=== PATIENT | female | born 1955 | race Caucasian/White ===

== ENCOUNTER 2019-01-14 14:56 | Emergency (ER) | payer MEDICARE, BC ==
[2019-01-14] MEDS ORDERED: Lidocaine 1%* 5 ML VIAL INJ ONE ×2 (15:42→17:57)
[2019-01-14] MEDS ORDERED: Tetan/Diph/Pertus SYR(Tdap)* 0.5 ML SYR(BOOSTRIX) use SYR IM ONE (15:42)
--- NOTE | 2019-01-14 15:43 | ED ---
Lower Extremity - HPI Summary HPI Summary: Patient is a 63-year-old female who presents emergency department for right knee pain and bilateral foot pain after mechanical fall that occurred just prior to arrival. Patient states she was walking off of a sidewalk into a parking lot when she did not realize that there was a step down causing her to fall landing onto her right knee. Patient denies head injury or loss of consciousness. Patient is unsure of her last tetanus immunization. Patient otherwise denies headache, chest pain, shortness of breath, syncope, lightheadedness, dizziness. Symptoms are mild in severity. Touching affected areas makes symptoms worse. Rest makes symptoms better. Patient notes she took Tylenol prior to arrival. - History of Current Complaint Chief Complaint: EDExtremityLower Stated Complaint: GASH IN KNEE PER PT Time Seen by Provider: 01/14/19 15:34 Hx Obtained From: Patient Pain Intensity: 8 - Allergies/Home Medications Allergies/Adverse Reactions: Allergies Allergy/AdvReac Type Severity Reaction Status Date / Time sulfamethoxazole Allergy Rash Verified 01/14/19 15:03 [From Bactrim] trimethoprim [From Bactrim] Allergy Rash Verified 01/14/19 15:03 PMH/Surg Hx/FS Hx/Imm Hx Previously Healthy: Yes Infectious Disease History: No Infectious Disease History: Denies: Traveled Outside the [place] in Last 30 Days - Family History Known Family History: Positive: Non-Contributory - Social History Occupation: Retired Lives: With Family Alcohol Use: Occasionally Substance Use Type: Reports: None Smoking Status (MU): Never Smoked Tobacco Review of Systems Cardiovascular: Negative Respiratory: Negative Positive: Other - Right knee pain and bilateral foot pain Positive: Other - laceration to right knee Negative: Weakness, Paresthesia, Numbness All Other Systems Reviewed And Are Negative: Yes Physical Exam Triage Information Reviewed: Yes Vital Signs On Initial Exam: Initial Vitals Temp Pulse Resp BP Pulse Ox 97.8 F 67 16 159/93 98 01/14/19 14:59 01/14/19 14:59 01/14/19 14:59 01/14/19 14:59 01/14/19 14:59 Vital Signs Reviewed: Yes Appearance: Positive: Well-Appearing - Pt. sitting in wheelchair in hallway in [facility]. present. Right leg of suleiman is cut with blood on jaqui. Skin: Positive: Warm, Dry Head/Face: Positive: Normal Head/Face Inspection Eyes: Positive: Normal, EOMI, YOSEF Neck: Positive: Supple Musculoskeletal: Positive: Other - Diffuse right anterior knee pain with overlying 4 cm horizontal laceration. Pain to bilateral feet on palpation. Good pulses bilaterally. Neurological: Positive: Normal, Alert, Oriented to Person Place, Time, CN Intact II-III Psychiatric: Positive: Affect/Mood Appropriate Procedures - Splinting Right Lower Extremity Pre-Made Type: post op shoe Pre-Proc Neuro Vasc Exam: normal Post-Proc Neuro Vasc Exam: normal Left Lower Extremity Hand-Made Type: orthoglass Splint: posterior walking Pre-Proc Neuro Vasc Exam: normal Post-Proc Neuro Vasc Exam: normal - Laceration/Wound Repair 1 Location: lower extremity Description: Linear Anesthesia: Local, 1.0%, Lido Length, Depth and Shape: 4 cm linear, jagged edges Betadine Prep?: No - hibiclens Irrigated w/ Saline (ccs): 250 Laceration/Wound Explored: clean Closure: Single Layer Suture Type: Prolene Number of Sutures: 4 Layer Closure?: No Sterile Dressing Applied?: Yes Diagnostics - Vital Signs Vital Signs Temp Pulse Resp BP Pulse Ox 01/14/19 14:59 97.8 F 67 16 159/93 98 - Laboratory Lab Statement: Any lab studies that have been ordered have been reviewed, and results considered in the medical decision making process. Lower Extremity Course/Dx - Course Course Of Treatment: Pt. presenting for knee laceration and bilateral foot injuries. Tetanus updated. Pt. took tylenol prior to arrival knee xray is negative for fx or dislocation. Right foot xray shows a 1st phalanx fx. Left foot shows a proximal 5th metatarsal fx. Readings per radiology. Right knee laceration copiously irrigated and closed as noted above. Will prophylactically tx with keflex given over joint. To ice and elevate. Feet spling. Acewrap placed to right knee to prevent from flexion. Pt. would like to take tylenol or motrin for pain. Suture removal in 10-14 days. To f.u with ortho. MISTI. Pt. states she will get a walker from medical supplies. Needs to be nonweight baring on left foot. Pt. understands and agrees with plan. DC home with . - Diagnoses Differential Diagnosis/HQI/PQRI: Positive: Arthritis, Contusion, Fracture ( Closed), Sprain, Strain Provider Diagnoses: Metatarsal fracture, Fractured great toe, Laceration, Knee contusion Discharge - Sign-Out/Discharge Documenting (check all that apply): Patient Departure Patient Received Moderate/Deep Sedation with Procedure: No - Discharge Plan Condition: Good Disposition: HOME Prescriptions: Cephalexin CAP* [Keflex CAP*] 500 mg PO BID #20 cap Patient Education Materials: Care For Your Stitches (ED), Toe Fracture (ED), Foot Fracture in Adults (ED) Referrals: Dennys Raman MD [Medical Doctor] - Aye Mena MD [Primary Care Provider] - Additional Instructions: Call the orthopedic clinic tomorrow morning for a follow up appointment Suture removal in 10-14 days Antibiotic as directed to prevent infection Keep wound clean and dry Ice and elevate intermittently Keep splint in place Do not bare weight on left foot--recommend getting a walker Tylenol or Motrin for pain as directed Return to ER if symptoms change or worsen - Billing Disposition and Condition Condition: GOOD Disposition: Home
[2019-01-14] MEDS ORDERED: Lidocaine 1% INJ* 10 MG/ML 30 ML SDV ONE (16:54)
[2019-01-14] MEDS ORDERED: Lidocaine 1%* 5 ML VIAL ONE (16:56)
[2019-01-14 18:07] VITALS: BP 153/63
== END 2019-01-14 18:05 | disposition home or self-care (01) ==
LOC: ED 14:56
DX: S92.311A Displaced fracture of first metatarsal bone, right foot, initial encounter for closed fracture (principal); S92.355A Nondisplaced fracture of fifth metatarsal bone, left foot, initial encounter for closed fracture; S81.011A Laceration without foreign body, right knee, initial encounter; W10.1XXA Fall (on)(from) sidewalk curb, initial encounter; Y93.01 Activity, walking, marching and hiking; Y92.480 Sidewalk as the place of occurrence of the external cause; Z88.2 Allergy status to sulfonamides; Z88.8 Allergy status to other drugs, medicaments and biological substances
CPT/HCPCS: 12002; 90471; 90715; 99282